=== PATIENT | male | born 1955 | race Caucasian/White ===

== ENCOUNTER 2020-06-06 08:20 | Day surgery (SDC) | payer MEDICARE ==
[2020-06-05 14:41] VITALS: BMI 26.9
[~2020-06-06 08:20] MED LIST: EPINEPHrine 0.3 MG in Ophthalmic Irrigation Solution 500 ML IRR SCH; Fentanyl 100 MCG/2 ML VIAL ONE; Midazolam HCl 2 mg/2 ml Vial ONE
[2020-06-06] MEDS ORDERED: Cyclopentolate 1% Ophth Drops 15 ML BOT ONE (08:42)
[2020-06-06] MEDS ORDERED: Phenylephrine 2.5% Ophth Soln 5 ML BOT ONE (08:42)
[2020-06-06] MEDS ORDERED: Maxitrol 0.1% Opth Oint 3.5 GM TUBE ONE (09:51)
[2020-06-06] MEDS ORDERED: Bupivacaine PF 0.75% SDV 10 ML ONE (09:51)
[2020-06-06] MEDS ORDERED: PROPOFOL 200 MG/20 ML VIAL ONE (09:51)
[2020-06-06] MEDS ORDERED: Lidocaine 1% PF 5 ML VIAL ONE (09:51)
[2020-06-06] MEDS ORDERED: Lidocaine 4% PF 5 ML AMP ONE (09:51)
[2020-06-06] MEDS ORDERED: CEFAZOLIN 1 GM VIAL ONE (09:51)
[2020-06-06] MEDS ORDERED: Ondansetron PF 4 MG/2 ML Vial ONE (09:51)
[2020-06-06] MEDS ORDERED: Triamcinolone 40 MG/ML VIAL ONE (09:51)
[2020-06-06] MEDS ORDERED: ePHEDrine Sulfate 50 MG/10 ML VIAL ONE (09:51)
[2020-06-06] MEDS ORDERED: Metoclopramide HCl 10 MG/2 ML VIAL ONE (09:51)
[2020-06-06] MEDS ORDERED: Fentanyl 100 MCG/2 ML VIAL ONE (10:02)
== END 2020-06-06 13:20 | disposition home or self-care (01) ==
LOC: SDC 08:20
PROVIDERS: ATTEND Ophthalmology Retina Specialist
PROC: 08T53ZZ Resection of Left Vitreous, Percutaneous Approach (ICD-10-PCS; principal; 2020-06-06)
DX: H33.022 Retinal detachment with multiple breaks, left eye (principal); Z88.5 Allergy status to narcotic agent
CPT/HCPCS: 67025; J0171; J0690; J2250; J2405; J2704; J2765; J3010; J3301; J3490

== ENCOUNTER 2020-06-22 17:20 | Outpatient (CLI) | payer MEDICARE ==
[2020-06-23 01:53] LABS: SARS-CoV-2 PCR by NAA Not Detected (NotDetected)
== END 2020-06-22 17:21 | disposition home or self-care (01) ==
LOC: LABBT 17:20
PROVIDERS: ATTEND Family Medicine
DX: Z01.812 Encounter for preprocedural laboratory examination (principal); H33.22 Serous retinal detachment, left eye; Z20.822 Contact with and (suspected) exposure to COVID-19
CPT/HCPCS: U0003; U0005; 87635

== ENCOUNTER 2020-06-27 10:58 | Day surgery (SDC) | payer MEDICARE ==
[2020-06-26 13:42] VITALS: BMI 26.9
[2020-06-27] MEDS ORDERED: Phenylephrine 2.5% Ophth Soln 5 ML BOT ONE (11:44)
[2020-06-27] MEDS ORDERED: Cyclopentolate 1% Ophth Drops 15 ML BOT ONE (11:44)
[2020-06-27] MEDS ORDERED: Famotidine/PF 20 mg/2ml Vial ONE (12:41)
[2020-06-27] MEDS ORDERED: ePHEDrine Sulfate 50 MG/10 ML VIAL ONE (13:00)
[2020-06-27] MEDS ORDERED: Maxitrol 0.1% Opth Oint 3.5 GM TUBE ONE (13:00)
[2020-06-27] MEDS ORDERED: Lidocaine 4% PF 5 ML AMP ONE (13:00)
[2020-06-27] MEDS ORDERED: PROPOFOL 200 MG/20 ML VIAL ONE (13:00)
[2020-06-27] MEDS ORDERED: Ondansetron PF 4 MG/2 ML Vial ONE (13:00)
[2020-06-27] MEDS ORDERED: Metoclopramide HCl 10 MG/2 ML VIAL ONE (13:00)
[2020-06-27] MEDS ORDERED: Lidocaine 1% PF 5 ML VIAL ONE ×2 (13:00)
[2020-06-27] MEDS ORDERED: Triamcinolone 40 MG/ML VIAL ONE (13:00)
[2020-06-27] MEDS ORDERED: CEFAZOLIN 1 GM VIAL ONE (13:00)
[2020-06-27] MEDS ORDERED: Bupivacaine PF 0.75% SDV 10 ML ONE (13:00)
[2020-06-27] MEDS ORDERED: hydrALAZINE 20 MG/ML VIAL ONE (15:40)
[2020-06-27] MEDS ORDERED: Acetaminophen 500 MG TAB ONE (15:55)
[2020-06-27] MEDS ORDERED: Labetalol HCl 100 MG/20 ML VIAL ONE (16:07)
== END 2020-06-27 18:30 | disposition home or self-care (01) ==
LOC: SDC 10:58
PROVIDERS: ATTEND Ophthalmology Retina Specialist
PROC: 08T53ZZ Resection of Left Vitreous, Percutaneous Approach (ICD-10-PCS; principal; 2020-06-27)
DX: H33.052 Total retinal detachment, left eye (principal); Z88.5 Allergy status to narcotic agent
CPT/HCPCS: 67108; C1814; J0171; J0360; J0690; J2250; J2405; J2704; J2765; J3010; J3301; J3490; S0028

== ENCOUNTER 2020-10-05 | Outpatient (CLI) | payer MEDICARE | END 2020-10-05 08:24 | disposition home or self-care (01) ==

== ENCOUNTER 2024-01-19 09:45 | Outpatient (CLI) | payer MEDICARE | END 2024-01-19 09:46 | disposition home or self-care (01) | LOC: SCSMRI 09:45 | PROVIDERS: ATTEND Neurological Surgery | DX: D49.6 Neoplasm of unspecified behavior of brain (principal); G93.89 Other specified disorders of brain | CPT/HCPCS: 70553; 76376 ==